=== PATIENT | male | born 1975 | race African-American/Black ===

== ENCOUNTER 2017-01-04 09:25 | Emergency (ER) | payer OTHER ==
[~2017-01-04] VITALS: Ht 177.8 cm; Wt 108.9 kg
--- NOTE | ~2017-01-04 | EKG ---
PATIENT: JOVAN HAYS UNIT #: [id number] Ventricular Rate: 103 BPM Atrial Rate: 103 BPM P-R Interval: 138 ms QRS Duration: 78 ms Q-T Interval: 332 ms QTC Calculation(Bezet): 434 ms P [place]: 66 degrees Calculated R [place]: 52 degrees Calculated T [place]: 10 degrees Diagnosis Line: Sinus tachycardia Diagnosis Line: Otherwise normal ECG Diagnosis Line: No previous ECGs available Diagnosis Line: Confirmed by ADONAY VENTURA MD ([id number]) on Diagnosis Line: 01/04/2017 2:03:22 PM INTERPRETING MD: AUDREY LAWRENCE
--- NOTE | ~2017-01-04 | CR72 ---
[facility] A Service of [facility] RADIOLOGY TEXT RESULTS PATIENT: JOVNA HAYS LOCATION: [facility] : 71 UNIT #: [id number] AGE: [address]: Uriel Guaman MD SEX: M ORDER DR: [id number] [facility] [address] [address] [place], [place] [address] [id number] E MR#: [id number] Acc #: [id number] NAME: JOVAN HAYS : 1975 SEX: M STUDY DATE/TIME: 01/04/2017 11:49 UNIT: [facility] ROOM: STUDY DESCRIPTION: CR Chest Single View Portable Attending Physician: Jose Guaman M.D. Ordering Physician: Jose Osorio M.D. Primary Care Physician: No Primary Care Physician MEDICAL IMAGING REPORT This report is preliminary unless electronic signature is present EXAM Single view chest. INDICATIONS Sepsis. Congestion. FINDINGS Single portable AP view of the chest without comparison. The heart and mediastinal contours are normal. The lungs are clear. No pleural effusion. IMPRESSION No acute findings. Dictated by... Pascual Salazar M.D. THIS IS AN ELECTRONICALLY VERIFIED REPORT Pascual Salazar M.D. at 01/04/2017 3:56 PM SHARIFA/lelia TD: 01/04/2017 15:36 JOB #: [id number] MEDICAL IMAGING REPORT Page 1 of 1 COPY
[2017-01-04 10:41] LABS: INFLUENZA A NEG (NEG); INFLUENZA B NEG (NEG)
[2017-01-04 11:07] LABS: BASOPHIL% 0.3 % (0-2.5); EOSINOPHIL% 0.1 % (0.0-7.0); HEMATOCRIT 45.6 % (38.0-50.0); HEMOGLOBIN 15.3 gm/dL (13.0-16.0); LYMPHOCYTE% 7.7 % (17.0-45.0); MEAN CELL VOLUME 95.1 FL (83-96); MEAN CORPUSCULAR HGB CONC 33.6 g/dL (30-36); MEAN PLATELET VOLUME 7.8 FL (6.5-11.5); MONOCYTE# 1.1 X10e3 (0-1.0); MONOCYTE% 8.9 % (3.0-12.0); NEUTROPHIL# 10.4 X10e3 (1.5-7.1); PLATELET COUNT 196 X10e3 (140-420); RED BLOOD COUNT 4.79 X10e (3.90-5.60); WHITE BLOOD COUNT 12.6 X10e3 (4.0-10.5)
[2017-01-04 11:18] LABS: DIFF IND NO
[2017-01-04 11:29] LABS: INR 1.2; PARTIAL THROMBOPLASTIN TIME 29.9 SECONDS (23.5-31.3); PROTHROMBIN TIME (PATIENT) 13.4 SECONDS (10.0-11.7)
[2017-01-04 11:49] LABS: ALBUMIN SERUM 4.1 g/dL (3.5-5.0); BILIRUBIN, DIRECT 0.1 mg/dL (0.0-0.2); BILIRUBIN,INDIRECT 1.2 mg/dL (0.0-0.9); BILIRUBIN,TOTAL 1.3 mg/dL (0.2-2.0); BUN/CREATININE RATIO 9.41; CALCIUM SERUM 8.8 mg/dL (8.4-10.2); CREATININE SERUM 1.7 mg/dL (0.6-1.4); POTASSIUM 3.6 mmol/L (3.5-5.1)
[2017-01-04 11:55] LABS: POC - CKMB <1.0 ng/mL (0.0-7.9); POC - TROPONIN <0.05 ng/mL (<=0.05)
[2017-01-04 12:49] LABS: URINE SOURCE CLEAN CATCH
[2017-01-04 12:54] LABS: URINE APPEARANCE CLEAR; URINE BILIRUBIN NEG (NEG); URINE BLOOD 2+ (NEG); URINE COLOR YELLOW; URINE GLUCOSE NEG (NEG); URINE KETONE NEG (NEG); URINE LEUKOCYTE ESTERASE NEG (NEG); URINE NITRATE NEG (NEG); URINE PROTEIN NEG (NEG); URINE SPECIFIC GRAVITY 1.014 (1.003-1.035)
[2017-01-04 12:57] LABS: URINE BACTERIA AUWI NEG (NEGATIVE); URINE SQUAMOUS EPITHELIAL CELL NONE SEEN /[HPF]; UWBCS1 AUWI 0-2 (0-5)
[2017-01-04 13:01] LABS: CULTURE INDICATED? NO
== END 2017-01-04 13:54 | disposition home or self-care (01) ==
LOC: CED 09:25
PROVIDERS: Emergency Medicine
DX: B34.9 Viral infection, unspecified (principal)
CPT/HCPCS: 36415; 71010; 80048; 80076; 81003; 82553; 83605; 84484; 85025; 85610; 85730; 87040; 87804; 93005; 99284